=== PATIENT | male | born 1985 | race Caucasian/White ===

== ENCOUNTER → 2023-03-28 10:29 | Outpatient (CLI) | payer OTHER, SELFPAY ==
--- NOTE | ~2023-03-28 | XR_ITS ---
EXAMINATION: XR hand LT 2V INDICATION: Left hand pain TECHNIQUE: Two views of the left hand are obtained. COMPARISON: None available FINDINGS: Bone alignment is normal. There is no fracture. There is soft tissue swelling of the hand n ear the second metacarpophalangeal joint. No radiopaque foreign body is identified. The joint spaces are normal. IMPRESSION: 1. Soft tissue swelling without acute osseous abnormality or radiopaque foreign body identified. Reviewed, dictated and finalized at location B. ONEER
== END ==
PROVIDERS: PCP Nurse Practitioner Adult Health; Visit Provider Nurse Practitioner Adult Health
DX: M79.89 Other specified soft tissue disorders (principal)
CPT/HCPCS: 73120

== ENCOUNTER → 2023-04-03 15:22 | Outpatient (CLI) | payer OTHER, SELFPAY ==
--- NOTE | ~2023-04-03 | US_ITS ---
EXAMINATION: US soft tissue UE LT DATE: 04/03/2023 15:53 INDICATION: Left forearm body. TECHNIQUE: Multiple grayscale and Doppler ultrasound images of the left hand were obtained. COMPARISON: Left hand radiographs 03/28/2023 FINDINGS: There is a 1.2 cm subcutaneous foreign body in the patient's area of concern in the palm ne ar the second metacarpal. IMPRESSION: 1. 1.2 cm subcutaneous foreign body in the patient's area of concern in the palm. Reviewed, dictated and finalized at location E. MAKER MACHINE IMPRESSION: 1. 1.2 cm subcutaneous foreign body in the patient's area of concern in the pal m.
== END ==
PROVIDERS: PCP Plastic Surgery; Visit Provider Plastic Surgery
DX: M79.5 Residual foreign body in soft tissue (principal)
CPT/HCPCS: 76882

== ENCOUNTER 2023-05-01 00:30 | Day surgery (SDC) | payer OTHER, SELFPAY ==
[2023-04-23 09:26] VITALS: BMI 28.0
--- NOTE | 2023-04-23 09:38 | PC.NURSE ---
Report to the Outpatient Waiting Room, entrance under the green pavilion located off [facility], at 0845 on 05/01/23. Planned Procedure Time: 1045. Time changes happen often and if your time is changed the preop area will call you the afternoon before. - You and your visitor will be asked to self-screen and do not enter if you have any COVID symptoms. - A mask is optional within the hospital at this time. Patients may have clear liquids (water, carbonated beverages, clear teas, apple juice) until 8 hours prior to surgery (between midnight and 0245, if desired) with a maximum of 20 ounces. - No food from midnight until time of surgery Take the following medications with a SIP of water the morning of surgery: n/a DO NOT STOP ANY OF YOUR OTHER PRESCRIPTION MEDICATIONS PRIOR TO SURGERY ?EXCEPT THE FOLLOWING Medications to discontinue per physician n/a Date to take last dose n/a Please no make-up, nail swiss, hairspray, perfume, deodorant, or body powder the day of surgery. No jewelry (including any body piercings) or valuables the day of surgery, leave them at home. Please take a shower or bath the night before, or the morning of, surgery with an antibacterial soap. Wear comfortable, loose fitting clothing. - Jewelry must be removed prior to entering the operating room. Rings and piercings that are not removed may be cut off. - The hospital will not accept responsibility for valuables. - Please leave all valuables, including medications, at home the day of surgery. If you are going home after surgery, a licensed personal driver must drive you home. - NO public transportation without another adult if you receive anesthesia. - We recommend that an adult stay with you for 24 hours following discharge. - We also recommend that you do not drive, make important decision, drink alcoholic beverages, or take any drugs that were not prescribed by your health care provider for at least 24 hours after your discharge time. Follow any additional instructions given to you from your surgeon. If you or anyone in your household have experienced Covid symptoms in the past week, please notify your surgeon or the nurse liaison at the phone number below for possible testing. Telephone instructions given to patient and asked if any additional questions and then verbalized understanding. Patient advised to call surgeon office or pre surgery nurse liaison [phone] if any additional questions.
--- NOTE | 2023-04-30 16:11 | WPDANESEPPF ---
Anes - Initial Pre Proc Eval Procedure: Operation Date: 05/01/23 10:45 Proposed Procedures p Left Palmar Foreign Body Excision - Lee Cuevas MD Date/Time: 04/30/23 16:11 Surgeon: Lee Cuevas MD Pre Op Diagnosis: foreign body in soft tissue Patient Data Age: 37 Gender: M Height: 1.75 m Weight: 86.18 kg Allergies Allergy/AdvReac Type Severity Reaction Status Date / Time Sulfa (Sulfonamide AdvReac Intermediate Vomiting Verified 05/01/23 09:34 Antibiotics) Home Medications Medication Instructions Recorded Confirmed Type cephalexin 500 mg capsule 500 mg PO Q8H #21 caps 05/01/23 Rx tramadol 50 mg tablet 50 mg PO Q6H PRN pain #12 tabs 05/01/23 Rx Patient hx anesthesia problems: none Family hx anesthesia problems: none Results Review: All pre-operative results and documents have been reviewed as part of the pre-operative evaluation. [facility] Past Medical History Medical History (Updated 03/28/23 @ 10:28 by Jovana Roldan APRN) Abscess of bursa, left knee (11/20/18) Acute pain of left knee Aftercare following surgery Annual physical exam BMI 29.0-29.9,adult Corneal irritation of right eye Dietary counseling and surveillance (06/27/16) Effusion of left knee Elevated blood pressure reading Foreign body (FB) in soft tissue Hyperlipidemia, mixed Impetigo Rib pain on left side Screening for diabetes mellitus Screening for thyroid disorder Screening, lipid Surgical History Surgical History H/O splenectomy Family History Family History Sibling Hypertension Grandparent Family history of lung cancer Family history of type 2 diabetes mellitus Father Hypertension Mother No problems noted. Social History Social History (Updated 04/02/23 @ 15:01 by Dorita Fried MA) Smoking status: Current some day smoker Tobacco type: cigarettes Second hand tobacco smoke exposure: No Additional smoking assessment comments: 1 pack/week socially Alcohol intake: current Drinks per week: 15 Alcohol use details: wine or vodka Substance use: current Substance use type: marijuana Other substance usage details: 3x/week Do You Feel Safe in your Home?: Yes Lack of Transportation: No Lack of Food: Never True Current Housing: I Have Housing Concerned About Future Housing: No Difficulty Paying Gas/Electric Bills: No Difficulty Paying for Meds: No Currently Unemployed: No Education: Trade/Vocational Certificate Difficulty w/ Childcare or Family Care: No Living arrangements: with family Occupation/Education: occupation 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 Informed Consent: The patient's anesthetic plan and its attendant risks and benefits were discussed with the patient/family/POA. Questions were solicited and answers provided to the satisfaction of the patient/family/POA.
[2023-05-01] VITALS (7 sets, daily range): BP systolic 127–148; BP diastolic 74–97; PULSE 64–82; RESP 12–20; TEMP 36.3–36.6; O2SAT 95–98
--- NOTE | 2023-05-01 07:08 | P.OP_ITS ---
Procedure Note - Detailed Date of Procedure 05/01/23 Pre-op Diagnosis foreign body left palm Post-op Diagnosis Same Procedure Performed excision left palm foreign body granuloma Surgeon Lee Cuevas MD Gunite Nozzle Operator Chaparro Ferraro PA-C Anesthesia MAC Description of Procedure INFORMED CONSENT: The patient was seen and examined and marked in the pre-op area.? The patient signed the consent form. PROCEDURE IN DETAIL:The patient taken back to OR on the stretcher in supine position. Time out performed with anesthesia, surgeon and staff agreeing on patient's name site and surgery to be performed SCDs were placed on the lower extremities and inflated. A tourniquet was placed on {left} upper extremity and antibiotics given IV After anesthesia administered sedation I injected {4}cc 1%lido and 0.5% marcaine plain at the operative site The?{left upper extremity}?was prepped and draped in sterile fashion the??{left upper extremity} was? exsanguinated with Esmarch bandage and tourniquet inflated to 250mmHg I proceeded with making an elliptical incision with a 15 blade scalpel around the foreign body entry site through skin and dermis and extended the incision distally and proximally going obliquely across the volar mpjoint flexion crease. Littler scissors were used to elevate surrouding skin flaps. I spread around the skin of the entry site through subq tissue but no clear foreign body was identified as noted on ultrasound. The skin and subq foreign body granuloma was excised. I proceeded with subcutaneous, wound exploration but no 1cm foreign body as suggested on ultrasound was identified. I carried incision through the interosseous fascia radially but no foreign body was noted. I proceeded with spreading down to flexor sheath and incised a1 jonah and retracted and inspected fds and fdp tendons but no foreign body or evidence of inflammatory trauma was identified. It was noted there were occasionally scant <1mm specs of possible brown foreign body material noted around the subq tissues but none were identified deeper. This irregular discolored inflammatory tissue was sharply debrided. Having exhausted all options for exploration I irrigated the wound with normal saline and closed with 4-0 chromic. The digital nerves wereidentified and protected throughout the procedure. A dressing of xeroform, 4x4, aust[place], and an alysa bandage was applied after the tourniquet was let down noting the hand was warm and well perfused. The patient was then awaken from anesthesia and transferred to the recovery room in stable condition.? Complications - none EBL- 1cc Disposition - home in stable conditions Chaparro Ferraro PA-C was essential for positioning, retraction, closure and dressing placement [facility] Billing Surgery - Charge Forward: Surgery Billing ([id number] and [id number] same for chaparro with modifier )
--- NOTE | 2023-05-01 07:08 | WPDHPUPDATE1 ---
History and Physical Update Update Date/Time: 05/01/23 07:08 Patient seen and examined in pre-operative holding area. No interval change in medical history or symptoms. Patient recalls previous discussion of benefits and alternatives to procedure. Continues to desire to proceed with left palmar foreign body granuloma excision . Reviewed procedure, post-op expectations and risks including but not limited to bleeding, infection, injury to tendon/nerve/vessel, decreased hand function, stiffness, RSD, no change or worsening of symptoms. I discussed the possible use of assistants and their participation in the case. Patient stated understanding and signed the consent form wishing to proceed.
[2023-05-01] MEDS: LACTATED RINGERS 1,000 ML 30 ML IV CONT ×2 (09:30→11:02)
[2023-05-01] MEDS: ceFAZolin 2 GM/D5W 50 ML 2 GM/50 ML BAG IVPB (09:53)
[2023-05-01] MEDS: BUPivacaine HCL 0.5% PF 30 ML VIAL 5 ML INFILTRATE (10:04)
[2023-05-01] MEDS: LIDOCAINE HCL 1% LOCAL INJ 20 ML VIAL 5 ML INFILTRATE (10:04)
[2023-05-01] MEDS: oxyCODONE HCL (*CRX) 5 MG TAB IR PO (11:56)
== END 2023-05-01 12:29 | disposition home or self-care (01) ==
PROVIDERS: PCP Family Medicine; Visit Provider Plastic Surgery
PROC: (CPT 11010; principal; 2023-05-01 10:45)
DX: L92.8 Other granulomatous disorders of the skin and subcutaneous tissue (principal); F17.210 Nicotine dependence, cigarettes, uncomplicated; F12.90 Cannabis use, unspecified, uncomplicated
CPT/HCPCS: 11010; 26055; 88304; A9270; J0690; J1100; J2250; J2405; J2704; J3010; J7120